=== PATIENT | male | born 1990 | race Caucasian/White ===

== ENCOUNTER 2022-04-09 23:30 | Emergency (ER) | payer BC ==
[~2022-04-09] VITALS: Ht 188 cm; Wt 93.0 kg
[2022-04-10] MEDS ORDERED: IBUPROFEN 800 MG TABLET PO ONE (00:15)
[2022-04-10 01:26] VITALS: BP_SYST 154
[2022-04-10] MEDS ORDERED: IBUP-1970 PO (02:15)
[2022-04-10 02:45] VITALS: BP_SYST 154
== END 2022-04-10 02:45 | disposition home or self-care (01) ==
LOC: SED 23:30
DX: M54.50 Low back pain, unspecified (principal); M79.661 Pain in right lower leg; M25.531 Pain in right wrist; M25.532 Pain in left wrist; Y04.8XXA Assault by other bodily force, initial encounter; Y93.89 Activity, other specified; Y92.89 Other specified places as the place of occurrence of the external cause; Y99.8 Other external cause status
CPT/HCPCS: 72050-TC; 72072-TC; 72110; 73030; 73590-TC; 99284